=== PATIENT | male | born 1950 | race Two or more races ===

== ENCOUNTER 2017-09-17 14:41 | Emergency (ER) | payer SELFPAY ==
[2017-09-17] MEDS: BENZONATATE 100 MG CAPSULE. PO (15:55)
[2017-09-17] MEDS: IPRATRPIUM/ALBUTEROL 0.5/2.5MG 3 ML NEBU. NEB (15:55)
== END 2017-09-17 16:45 | disposition home or self-care (01) ==
LOC: ER 14:41
DX: J06.9 Acute upper respiratory infection, unspecified (principal); I10 Essential (primary) hypertension
CPT/HCPCS: 71046; 94640; 99284-25; J7620